=== PATIENT | male | born 1960 | race Native Hawaiian/Other Pacific Islander ===

== ENCOUNTER 2019-09-13 09:20 | Outpatient (CLI) | payer OTHER ==
[~2019-09-13] VITALS: Ht 185.4 cm; Wt 150.1 kg
== END 2019-09-13 20:54 | disposition home or self-care (01) ==
LOC: NM 09:20
DX: R07.9 Chest pain, unspecified (principal); R94.31 Abnormal electrocardiogram [ECG] [EKG]
CPT/HCPCS: A9500; J2785